=== PATIENT | male | born 1940 | race Caucasian/White ===

== ENCOUNTER 2017-02-14 17:00 | Inpatient (IN) | payer MEDICARE, OTHER ==
[~2017-02-14] VITALS: Ht 182.9 cm; Wt 108.6 kg
--- NOTE | ~2017-02-14 | OR ---
PATIENT'S NAME: ROXANN OSCAR [facility] AGE: 76 Y [address] ROOM: [id number] [place], [place] [address] LOCATION: GICU ADMIT DATE: 02/14/2017 OR/Procedure Report DISCHARGE DATE: FAMILY PHYSICIAN: PHYSICIAN, NO ATTENDING PHYSICIAN: Quinton Reis SURGEON: Emeterio Lutz MD [employer] OPERATOR: DATE OF PROCEDURE: 02/15/2017 PROCEDURES PERFORMED: 1. Left radial arterial line. 2. Right internal jugular venous catheter. 3. Transesophageal echocardiography. INDICATIONS: The patient is undergoing coronary artery bypass grafting. DESCRIPTION OF PROCEDURE: The patient was identified in perioperative holding. The left arm was extended out, cleaned with 2% chlorhexidine. The radial artery was easily palpated. After 2 sticks and ultrasound guidance, the artery was cannulated with a 20-gauge Arrow catheter using the Seldinger technique. Bright red pulsatile blood found on return, and secured into place. Blood loss, none. Complications, none. After induction of general anesthesia, the patient was lying supine on the operating table in slight Trendelenburg position. The right neck and chest were prepped with chlorhexidine 2%. Maximal sterile barriers worn at all times. The ultrasound was used to identify the right internal jugular vein and used for real-time guidance. With a single stick, dark nonpulsatile blood was found on return, and a wire was threaded easily. Ultrasound was then used to visualize the wire and internal jugular vein. Skin nicked, dilated, and a 9-Irish, 10 cm catheter was placed over the wire without complication. The catheter was sutured in place. Ports withdrew blood, flushed easily. Complications, none. Blood loss, none. Chest x-ray is ordered in the ICU. After induction of general anesthesia and placement of lines, the transesophageal echocardiogram probe was placed atraumatically. Please see saved images and SDS sheet for further details. It showed preserved ejection fraction of around 55% to 60%. There was some mild mitral regurgitation. Aortic valve was trileaflet with minimal sclerosis. Good functioning. No stenosis or regurgitation noted, and pressure gradient was around 6, and valve area was 4. There was no pericardial effusion. No atrial septal defects. There was minimal to no atheromas on the arch. After conclusion of the case, echo had been obtained and was essentially unchanged. PATIENT'S NAME: ROXANN OSCAR [facility] AGE: 76 Y [address] ROOM: [facility] [place] [place], [place] [address] LOCATION: [facility] ADMIT DATE: 02/14/2017 OR/Procedure Report DISCHARGE DATE: FAMILY PHYSICIAN: PHYSICIAN, ETELVINA ATTENDING PHYSICIAN: Quinton Reis MD CHARITY ALEXANDER/pierce /[id number] d: 02/15/17 1825 t: 03/02/17 1344, OPERATIVE SUMMARY
--- NOTE | ~2017-02-14 | HP ---
PATIENT'S NAME: ROXANN RUSSELL [facility] AGE: 76 Y [address] ROOM: [place] [address] LOCATION: GPCU ADMIT DATE: 02/14/2017 History & Physical DISCHARGE DATE: FAMILY PHYSICIAN: PHYSICIAN, UNKNOWN ATTENDING PHYSICIAN: Quinton Nails DATE OF SERVICE: CHIEF COMPLAINT: Three-vessel coronary artery disease. HISTORY OF PRESENT ILLNESS: The patient is a 76-year-old white male, who was transferred here from [place] late this afternoon. He is a very pleasant gentleman who resides in [place], [place], and has been having trouble with his blood pressure for quite some time now. He has gone through multiple medication changes with no improvement in his blood pressure. Overall, he was feeling poorly with excessive fatigue, always tired, and he could barely walk without becoming dyspneic. He denied any significant chest pain that felt bad enough that he continued to pursue getting evaluated. He was set up for a stress test which revealed an inferior wall ischemia. From there, his primary set him up to see Dr. [facility] [place] on January 30, 2017. From the findings on the stress test, it was recommended that he undergo a cardiac catheterization, which was performed in [place] this morning. Findings were for a normal EF. The LAD had a large lesion of 85%, the circumflex 80% occlusion, a very large area of occlusion to the RCA consisting of anywhere between 80% and 95%. At this point, Dr. Garcia did not feel that remediation with stent would be appropriate and transferred the patient to Dr. Nails for coronary artery bypass grafting. PAST MEDICAL HISTORY: Illnesses: Hypertension, hypothyroidism, seasonal allergies, and obesity. ALLERGIES: NO KNOWN DRUG ALLERGIES. SOCIAL HISTORY: The patient resides in [place], [place] with his . He has grown children. He is retired. No history of alcohol abuse or tobacco abuse. FAMILY HISTORY: His father at age 68 from myocardial infarction. CURRENT MEDICATIONS: 1. Bystolic 20 mg daily. PATIENT'S NAME: ROXANN OSCAR [facility] AGE: 76 Y [address] ROOM: [place] [address] LOCATION: GPCU ADMIT DATE: 02/14/2017 History & Physical DISCHARGE DATE: FAMILY PHYSICIAN: PHYSICIAN, UNKNOWN ATTENDING PHYSICIAN: Quinton Nails 2. Flonase 50 mcg two sprays each nostril once a day. 3. Norvasc 5 mg daily. 4. Aspirin 81 mg daily. 5. Plavix 75 mg daily. 6. Imdur 60 mg daily. 7. Levothyroxine 75 mcg daily. 8. Cozaar 50 mg daily. 9. Artificial Tears one drop each eye p.r.n. dry eyes. SYSTEM REVIEW: GENERAL: The patient has not really had any change in his weight or appetite. No fever, chills, or sweats. He has been excessively tired/fatigued for quite some time now. HEENT: No visual complaints. No hearing complaints. He does have seasonal allergies for which he is taking medication. No difficulty swallowing, change in voice, or hoarseness. RESPIRATORY: He has been experiencing dyspnea on exertion and cannot walk very far without becoming fairly short of breath, having to stop and rest. CARDIOVASCULAR: Some occasional chest pain, but nothing severe. No palpitations, no syncope. Denies intermittent claudication. No complaints of ongoing lower extremity edema. GI: No nausea, vomiting, constipation, or diarrhea. No complaints of persistent reflux. : No urinary complaints. MUSCULOSKELETAL: No significant arthritic aches or pains. Does not require ambulatory devices. NEUROLOGIC: No frequent or severe headaches. No history of seizures, memory loss, or syncope. PSYCHIATRIC: No psychiatric or psychiatric history. No history of diabetes. He does have a history of hypothyroidism for which he takes replacement therapy. INTEGUMENT: No known skin diseases. PHYSICAL EXAMINATION: VITAL SIGNS: Blood pressure is 184/84, pulse is 58, respirations 16, temp 97.9, O2 saturations 96% on room air. Weight is 114.4 kg, height is 182.88 cm. GENERAL: The patient is very pleasant and cooperative. He appears his appropriate age, in no acute distress. His and daughter are at the bedside. HEENT: Normocephalic with EOMIs intact. Conjunctivae clear. NECK: No palpable lymphadenopathy or thyromegaly. LUNGS: Clear to auscultation bilaterally. CARDIOVASCULAR: Regular rate and rhythm with no murmur detected. ABDOMEN: Obese, soft, nontender by 4 quadrants with positive bowel sounds PATIENT'S NAME: ROXANN OSCAR [facility] AGE: 76 Y [address] ROOM: [address] [address] [facility] ADMIT DATE: 02/14/2017 History & Physical DISCHARGE DATE: FAMILY PHYSICIAN: PHYSICIAN, UNKNOWN ATTENDING PHYSICIAN: Quinton Nails throughout. EXTREMITIES: No overt varicosities or edema. NEUROLOGIC: Alert and oriented x3. Strength is symmetrical. SKIN: No suspicious skin lesions. LABORATORY DATA: Labs from February 07, 2017, BUN 13, creatinine 1.1, GFR 65. Potassium 4.1. Hemoglobin 13.9, platelets 240. Otherwise, cardiac catheterization as per HPI. IMPRESSION: 1. Three-vessel coronary artery disease. 2. Poorly controlled hypertension. RECOMMENDATION AND PLAN: Dr. Nails spoke to the patient and his family with regard to surgical revascularization. He provided a diagram outlining the blockages. Plans would be for a four-vessel bypass. Risks and benefits of the procedure were discussed. Discussion of the risks include, but were not limited to, bleeding, requiring transfusion or return to the operative suite, myocardial infarction, cerebrovascular accident, renal and/or pulmonary failure. Also discussed for arrhythmias and infection as well as operative and postoperative mortality. The patient will be at an increased risk for bleeding as he has been on Plavix. Questions have been asked and answered by the patient and his family and questions answered to their satisfaction. We will plan for surgery first thing tomorrow morning. We will begin the preoperative evaluation at this time. We will also get him started on a nitroglycerin drip secondary to his hypertensive state and have the nitroglycerin titrated to keep systolic blood pressures greater than or equal to 150. ZAKI HASSAN APRN FOR [employer], DO MALLORY/paulettel /[id number] D: 950 T: 429 HISTORY & PHYSICAL
--- NOTE | ~2017-02-14 | PUL ---
PATIENT'S NAME: ROXANN OSCAR [facility] AGE: 76 Y [address] ROOM: [id number] [address] LOCATION: GICU ADMIT DATE: 02/14/2017 Pulmonary DISCHARGE DATE: FAMILY PHYSICIAN: PHYSICIAN, NO ATTENDING PHYSICIAN: Quinton Reis NAME OF PROCEDURE: Bedside Spirometry DATE OF PROCEDURE: February 14, 2017 TECH: Jose, TARSHA REASON FOR EXAM: Pre-surgical evaluation RESULTS: Spirometry reveals decreased FVC at 3.03 which is 65% predicted, decreased FEV1 at 2.50 which is 74% predicted, normal FEV1/FVC ratio is 82%, there is no significant bronchodilator response. PHYSICIAN INTERPRETATION: This spirometry is indicative of restrictive lung disease, full PFT is recommended for lung volume evaluation. Thank you for allowing me to participate in care of this patient. MD ROGER ROBIN/shahid /[id number] dtt: 02/27/17 1044 , Eleuterio So. dtd: 02/16/17 1155
--- NOTE | ~2017-02-14 | OR ---
PATIENT'S NAME: ROXANN OSCAR [facility] AGE: 76 Y [address] ROOM: [place] [address] LOCATION: GPCU ADMIT DATE: 02/14/2017 OR/Procedure Report DISCHARGE DATE: 02/20/2017 FAMILY PHYSICIAN: Marck Durbin ATTENDING PHYSICIAN: Quinton Reis SURGEON: Quinton Reis DO [employer]: DATE OF PROCEDURE: 02/15/2017 PREOPERATIVE DIAGNOSES: 1. Multivessel coronary artery disease. 2. Unstable angina. SECONDARY DIAGNOSES: 1. Hypertension. 2. Hypothyroidism. POSTOPERATIVE DIAGNOSES: 1. Multivessel coronary artery disease. 2. Unstable angina. PROCEDURES: Coronary artery bypass grafting x4 with left internal mammary artery bypass to the LAD, reverse saphenous vein bypass to the obtuse marginal 1, reverse saphenous vein bypass to obtuse marginal 2, reverse saphenous vein bypass to the right coronary artery. REFERRING PHYSICIAN: Dr. Garcia. BRIEF HISTORY: Mr. Oscar is a 76-year-old white male with the above-noted diagnosis. He has been brought to the operative suite today after informed consent was obtained for surgical revascularization. He was sterilely prepped and draped in usual fashion for sternotomy with lower extremity vein harvest. The sternal incision was made. The sternum was divided in midline. The marrow was made hemostatic with Hawa and electrocautery, and the internal mammary artery retractor was placed. Concurrently to this, the saphenous vein was harvested endoscopically from the lower extremity. The mammary was identified and then harvested utilizing surgical clips and electrocautery, and prior to its division, the patient was heparinized. The mammary was then divided and prepared for bypass. Mammary retractor was removed, and a sternal retractor was placed. Pericardium was opened and pericardial well was created. Cannulation sutures were placed in the ascending aorta and right atrium for bypass and cardioplegia cannulas, and the patient was cannulated and connected to the bypass pump without difficulty. The vein was then prepared for bypass. Cardiopulmonary bypass was initiated. Crossclamp was applied. Direct antegrade and retrograde cardioplegia was given along with PATIENT'S NAME: ROXANN OSCAR [facility] AGE: 76 Y [address] ROOM: [place] [address] LOCATION: GPCU ADMIT DATE: 02/14/2017 OR/Procedure Report DISCHARGE DATE: 02/20/2017 FAMILY PHYSICIAN: Marck Durbin ATTENDING PHYSICIAN: Quinton Reis topical cold saline. The heart arrested without difficulty. The right coronary artery was identified and opened. End-to-side vein graft anastomosed to this utilizing 7-0 Prolene. The graft was then sized appropriately and connected to the cardioplegia system. Another 500 mL of vein graft and retrograde cardioplegia was given, and this was done after each venous distal anastomosis. Similar venous distal anastomoses were then created to each of the obtuse marginals and then the left internal mammary artery was anastomosed to the left anterior descending artery, again in end-to-side fashion with 7-0 Prolene. With this completed, the bulldog was removed from the internal mammary artery and the cross-clamp was removed. Partial occlusion clamp was now placed and 3-proximal anastomosis was connected to the ascending aorta utilizing a 4-0 punch and 6-0 Prolene. With these completed, the partial occlusion clamp was now removed, vein grafts de-aired, bulldog was removed, and distal flow was given. Warm blood which had been going via the vein grafts and the retrograde cannula was now discontinued and retrograde cannula was removed. All distal sites were hemostatic. All proximal sites were hemostatic. Two atrial and one ventricular temporary pacemaking wires were placed. Ventilations were initiated, and we weaned from bypass without difficulty. The venous cannula was removed. Appropriate volume returned from the pump to the patient. The ascending aortic cannula was removed. Protamine was now given. Copious amounts of antibiotic-infused saline was used to irrigate the sternum and mediastinum. Four chest tubes were placed, one left pleural, one right pleural, one posterior pericardial, one anterior mediastinal, and the sternum was approximated with a ZipFix system, and the soft tissues were irrigated again and closed in layered fashion. All sponge, instrument, and needle counts correct, and the patient was transferred to the intensive care unit in stable condition. DO PAUL BENEDICT/pierce /[id number] d: 02/21/172005 t: 02/22/17 0741, OPERATIVE SUMMARY
--- NOTE | ~2017-02-14 | ENPV ---
Vascular Lower Extremity Vein Mapping Procedure Demographics Patient Name ROXANN OSCAR Date of Study 02/14/2017 Patient Number [id number] Gender Male Date of 1940 Age 76 Visit Number [id number] Height Accession Number [id number] Weight Room Number G6214 BSA BMI Referring Chato Tim DO Interpreting Lulú Liu MD Physician Physician Physician Ordering Chato Tim Direct Support Professional Caregiver Physician DO Bath Solution Maker Anu Storm RDCS, RVT Conclusions Summary No evidence of deep vein thrombosis or superficial thrombophlebitis in the lower extremities bilaterally . The bilateral great saphenous vein was mapped and diameters are as listed. Procedure Type of Study: Veins:Lower Extremity Vein Mapping, Vein Mapping. Indications for Study:Pre-op CABG. Appropriate Use Criteria:9 Patient Status:Routine. Study Location:Inpatient Portable. Technical Quality:Adequate visualization. Velocities are measured in cm/s ; Diameters are measured in cm + ++--------++--------+ !Superficial - Great Saphenous Vein !!Right !!Left ! + ++--------++--------+ !Location !!Diameter!!Diameter! + ++--------++--------+ !Sapheno Femoral Junction !!0.85 !! ! + ++--------++--------+ !GSV High Thigh !!0.56 !!0.7 ! + ++--------++--------+ !GSV Mid Thigh !!0.47 !!0.39 ! + ++--------++--------+ !GSV Low Thigh !!0.58 !!0.45 ! + ++--------++--------+ !GSV Knee !!0.53 !!0.47 ! + ++--------++--------+ !GSV High Calf !!0.44 !!0.31 ! + ++--------++--------+ !GSV Mid Calf !!0.38 !!0.3 ! + ++--------++--------+ !GSV Low Calf !!0.41 !!0.23 ! + ++--------++--------+ - Number of vein branches on the right side:1 above knee. - Number of vein branches on the left side:1 below knee. Signature dtt: Abdon Chino dtd: 02/14/172000 Physician Self Edit
--- NOTE | ~2017-02-14 | ENPV ---
Carotid Duplex Study Demographics Patient Name ROXANN OSCAR Date of Study 02/14/2017 Patient Number [id number] Gender Male Date of 1940 Age 76 Visit Number [id number] Height Accession Number [id number] Weight Room Number G6214 BSA BMI Referring Chato Tim DO Interpreting Lulú Liu MD Physician Physician Physician Ordering Chato Tim Gta Physician DO Deli Slicer Anu Storm [facility], T Conclusions Summary The right internal carotid artery has mild, 1-39%, plaque and stenosis. The right vertebral artery is present with antegrade flow. The left internal carotid artery has mild, 1-39%, plaque and stenosis. The left vertebral artery is present with antegrade flow. Procedure Type of Study: Cerebral:Carotid, Carotid Doppler Bilateral. Indications for Study:Pre-op CABG. Appropriate Use Criteria:9 Patient Status:LUI. Study Location:Inpatient Portable. Technical Quality:Adequate visualization. Velocities are measured in cm/s ; Diameters are measured in cm Carotid Right Measurements Carotid Left Measurements + +--------+--------+ + + + +--------+ --------+ + + !Location !PSV !EDV !Angle !%Stenosis ! !Location !PSV ! EDV !Angle !%Stenosis ! + +--------+--------+ + + + +--------+ --------+ + + !Prox CCA !93 !13 !60 ! ! !Prox CCA !105 ! 14 !60 ! ! + +--------+--------+ + + + +--------+ --------+ + + !Dist CCA !70 !11 !60 ! ! !Dist CCA !76 ! 11 !60 ! ! + +--------+--------+ + + + +--------+ --------+ + + !Prox ICA !59 !12 !60 ! ! !Prox ICA !69 ! 16 !60 ! ! + +--------+--------+ + + + +--------+ --------+ + + !Dist ICA !50 !16 !60 ! ! !Dist ICA !74 ! 23 !60 ! ! + +--------+--------+ + + + +--------+ --------+ + + !Prox ECA !119 !10 !60 ! ! !Dist ECA !193 ! 13 !60 ! ! + +--------+--------+ + + + +--------+ --------+ + + !Vertebral !38 !10 !60 ! ! !Vertebral !59 ! 15 !60 ! ! + +--------+--------+ + + + +--------+ --------+ + + !Subclavian !163 ! !60 ! ! !Subclavian !89 ! !60 ! ! + +--------+--------+ + + + +--------+ --------+ + + - There is antegrade vertebral flow noted on the right side. - There is antegrade verte bral flow noted on the left side. - Add'l Measurements:Subclavian PRV 163 cm/sICAPSV/CCAPSV - Add'l Measurements:Subcl zoraida PRV 89 cm/sICAPSV/CCAPSV 0.63.ICAEDV/CCAEDV 1.23. 0.7.ICAEDV/CCAEDV 1.64. Impressions Right Impression There is a mild amount of smooth heterogeneous plaque in the right internal carotid artery . Left Impression There is a mild amount of smooth heterogeneous plaque in the left internal carotid artery . Signature dtt: Abdon Chino dtd: 02/14/17 1941 Physician Self Edit
--- NOTE | ~2017-02-14 | DS ---
PATIENT'S NAME: ROXANN OSCAR [facility] AGE: 76 Y [address] ROOM: [address] [place], [place] [address] LOCATION: GPCU ADMIT DATE: 02/14/2017 Discharge Summary DISCHARGE DATE: 02/20/2017 FAMILY PHYSICIAN: Marck Durbin ATTENDING PHYSICIAN: Quinton Nails [facility] COURSE: The patient is a 76-year-old white male who resides in [facility]. He was having trouble with excessively elevated blood pressures and went in to see his steel sampler. Workup led to a cardiac catheterization which revealed a multivessel coronary artery disease. Following the catheterization, the patient was transferred to [place] by Dr. Garcia in anticipation of coronary artery bypass grafting. The patient consented to the procedure and on 02/15/2017 the patient presented to the operative suite for coronary artery bypass grafting x4 with a left internal mammary artery bypass to the LAD, reverse saphenous vein graft bypass to the obtuse marginal, reverse saphenous vein graft bypass to the obtuse marginal #2, and reverse saphenous vein bypass to the coronary artery. The patient tolerated the surgery without complication. He transferred to the ICU thereafter. The patient extubated on the same operative day without complication. On postoperative day 1, his lines and drips were discontinued. He was transferred to the Progressive Care Floor. Cardiac Rehab was consulted to work with the patient for strengthening purposes. Presser Hand was called to the room to speak with the and daughter with regards to a heart healthy cooking. The patient's chest tubes, pacemaking wires, and Moraes catheter were discontinued in the routine postoperative timeframe. The patient did have urinary retention following the removal of the urinary catheter and therefore the Moraes was reinserted. The patient was started on Flomax. After a full course of the Flomax, the Moraes catheter was discontinued at midnight and the patient had no complications with voiding thereafter. The patient did not have any runs of postoperative atrial fibrillation. He had no healing concerns while hospitalized. Care Management worked with the patient and family regarding their desires for the patient's discharge status. They did not acquire any Home Health Care or skilled needs. The patient's medications were optimized and he was found stable to discharge to home on 02/20/2017. DISCHARGE ORDERS: Include a cardiac prudent diet. Activity levels as per the open heart surgery discharge summary sheet. No dressing changes are required. The patient was scheduled in to see Dr. Nails in 2 weeks as well as Dr. Garcia in 10 days. PRINCIPAL DIAGNOSES: Include coronary artery disease, hypertension, seasonal allergies, and hypothyroidism. The patient is not to pull, push, or lift anything heavier than 10 pounds PATIENT'S NAME: ROXANN OSCAR [facility] AGE: 76 Y [address] ROOM: [address] [place], [place] [address] LOCATION: GPCU ADMIT DATE: 02/14/2017 Discharge Summary DISCHARGE DATE: 02/20/2017 FAMILY PHYSICIAN: Marck Durbin ATTENDING PHYSICIAN: Quinton Nails until March 29, 2017. He is to work with Cardiac Rehab on an outpatient basis. DISCHARGE MEDICATIONS: Include: 1. Levothyroxine 75 mcg q.h.s. 2. Aspirin 81 mg daily. 3. Bystolic 10 mg at h.s. 4. Claritin 10 mg daily. 5. Tylenol 500 mg q.4 h. p.r.n. 6. Flonase 2 sprays each naris daily p.r.n. 7. Artificial Tears 1 drop each eye p.r.n. 8. Amiodarone 200 mg twice a day. 9. Lipitor 20 mg at h.s. 10. Bumex 2 mg daily. 11. Colace 100 mg twice a day. 12. Potassium chloride 20 mEq daily. 13. Flomax 0.4 mg at h.s. 14. Albuterol 2 puffs per inhalation q.i.d. 15. Clarion 5/325 1-2 every 4-6 hours as needed. 16. Milk of mag 30 mL p.o. daily. The patient and verbalized understanding of the discharge orders. The patient is discharged to home in stable condition. ZAKI HASSAN APRN FOR [employer] DO DLQ/modl /[id number] d: 03/08/17 0558 t: 03/14/17 1000, DISCHARGE SUMMARY
[2017-02-14] MEDS ORDERED: NORVASC5 MG PO (18:00)
[2017-02-14] MEDS ORDERED: LEVOTHROID(SYN75 MCG PO (18:01)
[2017-02-14] MEDS ORDERED: IMDUR60 MG PO (18:01)
[2017-02-14] MEDS ORDERED: COZAAR50 MG PO (18:01)
[2017-02-14] MEDS ORDERED: PLAVIX75 MG PO (18:01)
[2017-02-14] MEDS ORDERED: BYSTOLIC10 MG PO (18:02)
[2017-02-14] MEDS ORDERED: TYLENOL EXTRA500 MG PO (18:02)
[2017-02-14] MEDS ORDERED: ASPIRIN LO-DOSE81 MG PO (18:02)
[2017-02-14] MEDS ORDERED: CLARITIN10 MG PO (18:02)
[2017-02-14] MEDS ORDERED: ARTIFICIAL TEAR15 ML OPHTH (18:03)
[2017-02-14] MEDS ORDERED: FLONASE 50 MCG/16 GM NOSE (18:03)
--- NOTE | 2017-02-14 19:34 | NUR ---
Patient is 76 yo male admitted from [facility] after having a heart cath there today. Plan to have CABG in am. patient has been having pain in his back and right upper shoulder for a "few" weeks he states. Pt did have a CT scan 2-3 weeks ago his says and they saw an enlarged adrenal gland but will follow up after CABG. patient is very pleasant to visit with. Patient has saline lock in both left and right antecubital spaces. no erythema or edema is noted at either site. Patient lives near [place], [place]. has hx of smoking, quit in 2000, hx of alcoholism, quit in 1085. education is given as documented. patient and deny questions. pneumatics are on bilat calves. allergy bracelet is on. call light is within reach. patient denies needs at this time. Report is given to ADELAIDA Iniguez.
[2017-02-14 19:50] LABS: HEMATOCRIT 41.2 % (37.0-53.0); HEMOGLOBIN 14.2 g/dL (11.0-16.0); MCHC 34.5 gm/dL (32.0-36.5); MPV 8.9 fl (9.4-12.4); PLATELET COUNT 215 K/uL (150-450); RBC 4.58 M/uL (3.50-5.50); RDW-CV 13.6 % (11.9-14.6); WBC 6.5 K/uL (4.0-11.0)
[2017-02-14 19:55] LABS: BICARBONATE 25.2 mmol/L (18.0-23.0); PCO2 38 mmHg (35-45); PO2 74 mmHg (80-90)
[2017-02-14 20:11] LABS: ALBUMIN 3.9 gm/dL (3.5-5.0); ALK PHOS 41 IU/L (33-138); ALT 30 IU/L (12-78); ANION GAP 10.1 (10.0-19.0); AST 14 IU/L (10-40); BLOOD UREA NITROGEN 14 mg/dL (6-24); CALCIUM 8.8 mg/dL (8.5-10.5); CHLORIDE 105 mMol/L (96-110); CO2 27 mMol/L (22-32); ESTIMATED GFR (MDRD EQUATION) > 60; POTASSIUM 4.1 mMol/L (3.7-5.1); SODIUM 138 mMol/L (135-145); TOTAL BILIRUBIN 0.8 mg/dL (0.0-1.5); TOTAL PROTEIN 7.6 g/dL (6.0-8.4)
[2017-02-14 20:45] LABS: INR - (THERAPEUTIC) 0.99 (0.92-1.07); PROTIME 10.4 SECONDS (9.8-11.4); PTT 26 SECONDS (25-32)
[2017-02-14 23:59] LABS: BILIRUBIN URINE NEGATIVE (NEGATIVE); BLOOD URINE 10 /UL (NEGATIVE); COLOR URINE YELLOW (YELLOW); GLUCOSE URINE NEGATIVE (NEGATIVE); KETONE URINE NEGATIVE (NEGATIVE); LEUKOCYTES URINE NEGATIVE /UL (NEGATIVE); NITRITE URINE NEGATIVE (NEGATIVE); PROTEIN URINE 15 mg/dL (NEGATIVE); TURBIDITY URINE CLEAR (CLEAR); UROBILINOGEN URINE NORMAL (NORMAL)
[2017-02-15 00:05] LABS: BACTERIA URINE NEGATIVE (NEGATIVE); EPITHELIAL URINE RARE #/HPF (NEGATIVE); RBC URINE 0-2 #/HPF (NEGATIVE); WBC URINE NEGATIVE #/HPF (NEGATIVE)
--- NOTE | 2017-02-15 05:14 | NUR ---
Significant Event: A/O x3. Afebrile. Anxious at times. Denies pain. Titrated nitro gtt to keep sbp <150. Nitro gtt currently at 50mcg. SBP 210s decreased to current blood pressure 134/70. No headaches. HRs 57-70s. LS clear/dim. NPO since midnight. Bicarb running. Bilat AC IVs patent. Standby assist. CABG prep completed. Follow up: CABG procedure this am. Family at bedside.
[2017-02-15 11:28] LABS: MCV 90.5 fl (83.0-98.0); MPV 8.9 fl (9.4-12.4); RDW-CV 13.2 % (11.9-14.6); WBC 10.9 K/uL (4.0-11.0)
[2017-02-15 11:29] LABS: HEMOGLOBIN 9.1 g/dL (11.0-16.0); MCH 30.7 pg (27.0-34.0); RBC 2.96 M/uL (3.50-5.50)
[2017-02-15 11:30] LABS: HEMATOCRIT 26.8 % (37.0-53.0); PLATELET COUNT 128 K/uL (150-450)
[2017-02-15 11:42] LABS: INR - (THERAPEUTIC) 1.27 (0.92-1.07); PROTIME 13.4 SECONDS (9.8-11.4); PTT 29 SECONDS (25-32)
[2017-02-15 12:05] LABS: ALPHA ANGLE 69 degrees (70-81); ALPHA ANGLE 71 degrees; CLOT FORMATION TIME 100 seconds; CLOTTING TIME 90 seconds (43-82); MAXIMUM CLOT FIRMNESS 53 mm; MAXIMUM CLOT FIRMNESS 54 mm (51-72); MAXIMUM LYSIS 0 %
[2017-02-15 12:06] LABS: CLOTTING TIME 216 seconds
[2017-02-15 12:34] LABS: BICARBONATE 24.9 mmol/L (18.0-23.0); PCO2 44 mmHg (35-45)
[2017-02-15 12:35] LABS: PO2 143 mmHg (80-90)
[2017-02-15 12:55] LABS: ANION GAP 12.8 (10.0-19.0); BLOOD UREA NITROGEN 10 mg/dL (6-24); CALCIUM 7.7 mg/dL (8.5-10.5); CHLORIDE 108 mMol/L (96-110); CO2 24 mMol/L (22-32); CREATININE 1.1 mg/dL (0.6-1.3); ESTIMATED GFR (MDRD EQUATION) > 60; SODIUM 141 mMol/L (135-145)
[2017-02-15 12:56] LABS: POTASSIUM 3.8 mMol/L (3.7-5.1)
--- NOTE | 2017-02-15 15:01 | NUR ---
CONSULT RECEIVED FOR POST CABG HEART HEALTHY DIET ED. WILL COMPLETE DIET EDUCATION PRIOR TO DISMISSAL.
[2017-02-15 15:02] LABS: BICARBONATE 26.4 mmol/L (18.0-23.0); PCO2 45 mmHg (35-45); PO2 262 mmHg (80-90)
[2017-02-15 15:03] LABS: POTASSIUM 3.9 mEq/L (3.7-5.1); SODIUM 135 mEq/L (135-145)
[2017-02-15 15:04] LABS: BICARBONATE 28.2 mmol/L (18.0-23.0); PCO2 44 mmHg (35-45); PO2 313 mmHg (80-90)
[2017-02-15 15:07] LABS: POTASSIUM 5.1 mEq/L (3.7-5.1); SODIUM 133 mEq/L (135-145)
[2017-02-15 15:56] LABS: BICARBONATE 26.4 mmol/L (18.0-23.0); PCO2 48 mmHg (35-45); PO2 220 mmHg (80-90)
[2017-02-15 15:57] LABS: POTASSIUM 5.3 mEq/L (3.7-5.1); SODIUM 135 mEq/L (135-145)
[2017-02-15 15:58] LABS: BICARBONATE 25.6 mmol/L (18.0-23.0); PCO2 44 mmHg (35-45); PO2 272 mmHg (80-90)
[2017-02-15 15:59] LABS: SODIUM 134 mEq/L (135-145)
--- NOTE | 2017-02-15 16:18 | NUR ---
Significant Event: Patient is alert/oriented x3. Back from OR at 1205. Extubated at 1238, up to chair at 1245. Patient did have some post operative pain control problems. MD notified and was given a 1 time dose of 15mg of toradol. This helped tremendously, and relieved pain. Continues on IV insulin, D5LR at 20ml/hr and has amiodarone gtt per protocol, and bicarb at 50ml/hr until completed. APaced at 80. Ventricle wires taped to chest. Afebrile. Moraes draining good UOP. Chest tube sites x4. Follow up:
[2017-02-15 17:18] LABS: MAGNESIUM 1.9 mg/dL (1.8-2.6)
[2017-02-15 17:19] LABS: POTASSIUM 5.1 mMol/L (3.7-5.1)
[2017-02-16 05:34] LABS: BICARBONATE 27.3 mmol/L (18.0-23.0); PCO2 43 mmHg (35-45)
[2017-02-16 05:37] LABS: PO2 62 mmHg (80-90)
[2017-02-16 05:48] LABS: ANION GAP 13.4 (10.0-19.0); BLOOD UREA NITROGEN 14 mg/dL (6-24); CALCIUM 8.2 mg/dL (8.5-10.5); CHLORIDE 105 mMol/L (96-110); CO2 25 mMol/L (22-32); CREATININE 1.1 mg/dL (0.6-1.3); ESTIMATED GFR (MDRD EQUATION) > 60; POTASSIUM 4.4 mMol/L (3.7-5.1); SODIUM 139 mMol/L (135-145)
[2017-02-16 05:58] LABS: HEMOGLOBIN 11.3 g/dL (11.0-16.0); MCH 30.8 pg (27.0-34.0); MPV 9.6 fl (9.4-12.4); RBC 3.67 M/uL (3.50-5.50); RDW-CV 13.5 % (11.9-14.6)
[2017-02-16 06:01] LABS: HEMATOCRIT 33.4 % (37.0-53.0); MCHC 33.8 gm/dL (32.0-36.5)
--- NOTE | 2017-02-16 06:42 | NUR ---
Significant Event: A/O. A. PACED AT 80. NO ECTOPY NOTED. NITRO STARTED FOR HTN AT 1999. NITRO OFF AT 0545. CI 2.6-3.3. AFEBRILE. 2L O2. LUNG SOUNDS CLEAR, RUB NOTED TO L) LUNG. CHEST TUBES X4 TO SUCTION. MEDIASTINAL HAD 170ML OUT, PLEURAL HAD 260ML OUT. POOR PO INTAKE. HYPOACTIVE BOWEL SOUNDS. LOW UOP. NOTIFIED DR. NAILS. GAVE 40MG IVP LASIX X1. HAD 995ML UOP. GAVE NORCO 2 TABS X3, MORPHINE 2MG X3. STOOD WITH 2-3 ASSIST, TOLERATED WELL. Follow up: CONTINUE TO MONITOR.
--- NOTE | 2017-02-16 13:00 | NUR ---
Introduced self and role of care management to patient. He lives in [place], [place] with his . He thinks it is to soon to talk about discharge plans. He says his will proabably be here tomorrow or I can call her. Will follow.
--- NOTE | 2017-02-16 16:01 | NUR ---
Significant Event: Patient alert/oriented x3. Up ambulating in hallway x2 this shift. Up to chair/bed throughout the day. Afebrile. Paced rhythm at 70bpm. [place]'s last given at 1430 along with 2mg of Morphine. Chest tube sites x4. SS drainage. No crepitis obsered, remains to suction. No BM this shift, and not wanting to eat at all. Ensure pushed several times, he drank x2. Follow up:
--- NOTE | 2017-02-16 17:00 | NUR ---
Significant Event: Patient transferred to PCU by recliner. Report to Crescencio Chavez RN. Follow up:
--- NOTE | 2017-02-16 19:22 | NUR ---
Significant Event: Pt arrived from icu this afternoon. Moraes intact. CT 2mediastinal and 2 pleural. 02 1liter. Pacer atrial wires intact set rate 70. Norcos at 1835. Insulin drip 2units/hr, hourly checks. Pt family here. Pt alert/oriented and pleasant. Follow up:
--- NOTE | 2017-02-17 05:27 | NUR ---
Significant Event: NORCO 2 TABS GIVEN X2 FOR CONTINUED PAIN. CT #1 HAD 100ML OUT AND CT#2 HAD 90ML OUT. INSULIN GTT AT 2 UNITS ALL NIGHT. ACCUCHECKS DONE Q2H. GARNER PATENT WITH KATHLEEN URINE WITH 425ML OUT. INCREASED O2 TO 3L. WEAK COUGH. SLEPT IN BED ALL NIGHT. TEMPORARY PACER CONTINUES TO PACE. ONLY OCCASIONAL PACING NOTED PER MONITOR. HR REMAINS IN THE 70s. Follow up:
[2017-02-17 06:54] LABS: HEMATOCRIT 33.7 % (37.0-53.0); HEMOGLOBIN 11.2 g/dL (11.0-16.0); MCH 30.7 pg (27.0-34.0); MCHC 33.2 gm/dL (32.0-36.5); MCV 92.3 fl (83.0-98.0); MPV 9.5 fl (9.4-12.4); RBC 3.65 M/uL (3.50-5.50); RDW-CV 13.8 % (11.9-14.6); WBC 12.2 K/uL (4.0-11.0)
[2017-02-17 07:08] LABS: ANION GAP 10.5 (10.0-19.0); CALCIUM 8.4 mg/dL (8.5-10.5); CREATININE 1.3 mg/dL (0.6-1.3); POTASSIUM 4.5 mMol/L (3.7-5.1)
--- NOTE | 2017-02-17 16:00 | NUR ---
PATIENT UNABLE TO VOID AFTER GARNER BEING DC'D THIS AM. PATIENT STATES HE IS A LOT OF DISCOMFORT. PATIENT WAS STRAIGHT CATHED FOR 600 ML. PATIENT STATES THAT WAS A GREAT RELIEF.
--- NOTE | 2017-02-17 19:58 | NUR ---
2 CHEST TUBES WERE REMOVED TODAY, WELL PACER WIRES AND GARNER, DRESSING WAS REMOVED. PATIENT HAS BEE UP IN THE [facility] TODAY X1, CARDIAC REHAB WAS NOT ON FLOOR TODAY. PATIENT WAS UNABLE TO VOID AFTER REMOVAL OF GARNER AND WAS STRAIGHT CATHED X1 TODAY WITH 600ML RESULT. PATIENT IS A 1 ASSIST AND DOES WELL.
[2017-02-18 03:45] LABS: ALBUMIN 3.1 gm/dL (3.5-5.0); ANION GAP 12.4 (10.0-19.0); CALCIUM 8.7 mg/dL (8.5-10.5); CREATININE 1.4 mg/dL (0.6-1.3); PHOSPHORUS 3.3 mg/dL (2.5-4.9); POTASSIUM 4.4 mMol/L (3.7-5.1)
--- NOTE | 2017-02-18 05:20 | NUR ---
Significant Event: A/0X3. TURNED Q 2HRS SIDE TO SIDE. 1 ASSIST AND GB TO BR. HEART HUGGER ON. JUST NEEDS SMALL REMINDERS TO NOT PUSH UP OFF BED. AFEBRILE. VSS ON 2L. NORCO GIVEN X2 AND MORPHINE X1. PATIENT WAS ABLE TO FIND RELIEF AND REST COMFORTABLY THROUGHTOUT THE NIGHT. IV TO R) AC SL. PATIENT WAS HAVING TROUBLE URINATING WITH BLADDER SPASMS AND PAIN. STRAIGHT CATH X1 GOT 500 MLS OUT. A FEW HOURS LATER PATIENT STILL HAVING THE URGE TO VOID AND PAIN. BLADDER SCANNED PATIENT AND HE HAD > 420 IN BLADDER REINSERTED GARNER. PATIENT HAD A TOTAL OF 1350 OUT. STARTED FLOMAX PO BID. HYPOACTIVE BOWEL SOUNDS. NO BM THIS SHIFT. GILL DRAINS X2 1 HAD 30 MLS OUT. 2 HAD 50 MLS OUT. STERNUM OPEN TO AIR. EDGES APPROXIMATED AND CLOSED. DRESSING TO ABD C/D/I. HARVEST SITES TO L) LEG SUTURES INTACT AND OPEN TO AIR. Follow up: CONTINUE WITH PLAN OF CARE. CHEST XRAY THIS AM
--- NOTE | 2017-02-18 13:31 | NUR ---
A-SCREENED D/T LOS S/P CABG. NO BM SINCE ADMIT; RECEIVING BOWEL MEDS HT: 72 IN. CBW (STANDING SCALE): 111 KG. ADMIT WT (BED SCALE): 114.0 KG BMI: 33.3. RECEIVING BUMEX LABS: NA 136, K+ 4.4, GLU 119, BUN 29, HOOP EXPANDER 1.4, ALB 3.1, PREALB (PRE-OP): 35.0 MEDS: BUMEX, NOVOLOG (MOD SS), COALCE, PEPCID, NORCO, MORPHINE DIET RX: CONSISTENT CARB/2000 ML FLUID RESTRICTION. PT HAS BEEN GIVEN ENSURE ENLIVE AND ENSURE CLEAR TO TRY. HE DOES NOT LIKE THE ENSURE ENLIVE, BUT DOES LIKE THE ENSURE CLEAR WILDBERRY; HE WOULD LIKE TO RECEIVE THAT. PO INTAKE SIPS/BITE-100% SINCE ADMIT. PO INTAKE HAS IMPROVED TO 100% SINCE YESTERDAY. PT REPORTS THAT HIS APPETITE IS MUCH BETTER. EST NUTR NEEDS: [id number] KCALS (15-20 KCALS/KG) 122-162 GM PROTEIN (1.5-2.0 GM/KG IBW) FLUID PER D-AT NUTRITION RISK W/INCREASED NUTRIENT NEEDS R/T HEALING AEB STERNAL INCISION. I-1)ENSURE CLEAR BID AT [employer] AND DINNER, PER PT REQUEST 2)CARDIAC DIET POST CABG DIET ED COMPLETED WITH PT. WRITTEN INFORMATION, ALONG WITH RD CONTACT INFO LEFT WITH PT. ENCOURAGED TO CALL WITH ANY QUESTIONS. M/E-GOAL: PO INTAKE >/=75% FOR DURATION OF ADMIT 1)F/U PO INTAKE, SUPPLEMENT, AND POC IN 3-5 DAYS 2)ASSIST NEEDED
--- NOTE | 2017-02-18 15:39 | NUR ---
Significant Event: A/O. VSS weaned to 1L/NC from 3L. Ambulated in halls x2 this shift, does have some SOB but otherwise tolerates well. Pain controlled well at a 2/10. Milk of mag given with no results, states hes passing flatus and has active bowel sounds. Baca to DD and states that he feels much better having the baca in place. Dick drains DC'd today by Dr Reis. Follow up: possible dismissal Monday.
--- NOTE | 2017-02-19 05:40 | NUR ---
Significant Event: A/0X3. UP IN CHAIR THE MAJORITY OF THE NIGHT PER PATIENT REQUEST THEN GOT INTO BED. TURNED Q 2 HRS SIDE TO SIDE. HEART HUGGER ON. FOLLOWS STERNAL PRECAUTIONS. AFEBRILE. VSS ON 2L. TRIED TO WEAN PATIENT DOWN TO 1L. 87-89% ON 1L. WALKED HALLS X1. SOB WITH ACTIVITY. IV TO L) HAND SL. GARNER PATENT WITH 1100 MLS OUT. NORCO GIVEN X2. PATIENT WAS ABLE TO FIND RELEIF AND REST COMFORTABLY. ABD ROUND AND SLIGHTLY DISTENDED. PASSING GAS. STILL NO BM. Follow up:CONTINUE WITH PLAN OF CARE.
--- NOTE | 2017-02-19 15:34 | NUR ---
Significant Event: A/O. VSS weaned to RA. Pain controlled with norco. Ambulated in halls x2 so far today, tolerating well. SSI and accuchecks dc'd. Order to DC keven at midnight tonight. MOM given with no results, passing flatus. Follow up: possibly dismissing tomorrow.
[2017-02-20 03:35] LABS: HEMATOCRIT 30.2 % (37.0-53.0); MCH 30.5 pg (27.0-34.0); MCHC 33.1 gm/dL (32.0-36.5); MCV 92.1 fl (83.0-98.0); MPV 9.4 fl (9.4-12.4); RBC 3.28 M/uL (3.50-5.50); RDW-CV 13.5 % (11.9-14.6); WBC 7.1 K/uL (4.0-11.0)
[2017-02-20 03:54] LABS: ANION GAP 12.1 (10.0-19.0); CALCIUM 8.4 mg/dL (8.5-10.5); CREATININE 1.6 mg/dL (0.6-1.3); PHOSPHORUS 3.8 mg/dL (2.5-4.9); POTASSIUM 4.1 mMol/L (3.7-5.1)
--- NOTE | 2017-02-20 05:43 | NUR ---
Significant Event: A/0X3. SBA UP TO BR. HEART HUGGER ON. FOLLOWS STERNAL PRECAUTIONS WELL. AFEBRILE. VSS ON RA. LOW 90S ON RA. ENCOURAGED IS AND FV THIS SHIFT. PATIENT IS A VERY SHALLOW BREATHER. NORCO GIVEN X1 FOR PAIN. PATIENT WAS ABLE TO FIND RELIEF AND NO C/O OF PAIN THE REST OF THE SHIFT. PATIENT WAS ABLE TO REST COMFORTABLY. IV TO L) HAND SL. GARNER WAS D/C AT 2322. PATIENT WAS ABLE TO VD X1 SINCE THEN. NO C/O OF PAIN. PATIENT HAD A LARGE BM. PATIENT REFUSED SUPPER THIS EVENING BECASUE HIS STOMACH WAS UNSEATTLE. ZOFRAN WAS GIVEN X1 WITH RELIEF. D/C MEDS PRINTED AND ON CHART. Follow up: CONTINUE WITH PLAN OF CARE.
[2017-02-20] MEDS ORDERED: CORDARONE,PACE200 MG PO (09:38)
[2017-02-20] MEDS ORDERED: BUMEX1 MG PO (09:42)
[2017-02-20] MEDS ORDERED: LIPITOR20 M1 PO (09:42)
[2017-02-20] MEDS ORDERED: COLACE100 MG PO (09:43)
[2017-02-20] MEDS ORDERED: K-TAB ER20 MEQ PO (09:46)
[2017-02-20] MEDS ORDERED: FLOMAX0.4 MG PO (09:55)
[2017-02-20] MEDS ORDERED: ALBUTEROL2.5 MG/31 INH (09:57)
[2017-02-20] MEDS ORDERED: NORCO 5-325 TA1 EACH PO (09:58)
[2017-02-20] MEDS ORDERED: MILK OF MA400 MG/5 M PO (09:58)
--- NOTE | 2017-02-20 10:36 | NUR ---
CONSULT FOR CARDIAC DIET EDUCATION FOR PT'S FAMILY. RD COMPLETE DIET EDUCATION WITH PATIENT ON 02/18. VISITED PT'S AND DAUGHTER THIS AM FOR DIET ED. PT WAS TAKING SHOWER, TO BE DISCHARGED TODAY. REVIEWED CARDIAC DIET EDUCATION MATERIAL WITH AND DAUGHTER. DENIED FURTHER QUESTIONS. PT HAS A COPY OF DIET EDUCATION MATERIAL AND CONTACT INFORMATION.
--- NOTE | 2017-02-20 13:10 | NUR ---
PATIENT DISMISSED HOME WITH AND FAMILY PER PRIVATE AUTO. PATIENT TRANSFERED TO CAR PER W/C BY TRANSPORT STAFF. REVIEWED DIMSISSAL INSTRUCTIONS WITH PATIENT AND FAMILY INCLUDING STERNAL PRECAUTIONS AND POST-CABG CARE INSTRUCTIONS. PATIENT VERBALIZED UNDERSTANDING. GAVE PATIENT INFORMATION SHEETS ON NEW MEDICATIONS AND POST-CABG CARE DISMISSAL INSTRUCTIONS.
== END 2017-02-20 11:00 | disposition disaster alternative care site (69) | DRG 236 ==
LOC: GPCU 17:26 → GICU 17:26 → GPCU 02-16 16:51
PROVIDERS: ADMIT Thoracic Surgery (Cardiothoracic Vascular Surgery)
PROC: B245ZZ4 Ultrasonography of Left Heart, Transesophageal (ICD-10-PCS; principal; 2017-02-15)
PROC: 02100Z9 Bypass Coronary Artery, One Artery from Left Internal Mammary, Open Approach (ICD-10-PCS; principal; 2017-02-15)
PROC: 03HC33Z Insertion of Infusion Device into Left Radial Artery, Percutaneous Approach (ICD-10-PCS; principal; 2017-02-15)
PROC: 05HM33Z Insertion of Infusion Device into Right Internal Jugular Vein, Percutaneous Approach (ICD-10-PCS; principal; 2017-02-15)
PROC: 021 Heart and Great Vessels, Bypass (ICD-10-PCS; principal; 2017-02-15)
PROC: 5A1221Z Performance of Cardiac Output, Continuous (ICD-10-PCS; principal; 2017-02-15)
DX: I25.110 Atherosclerotic heart disease of native coronary artery with unstable angina pectoris (principal); I10 Essential (primary) hypertension; E03.9 Hypothyroidism, unspecified; E66.9 Obesity, unspecified
CPT/HCPCS: C1769; J0282; J0690; J1644; J1650; J1885; J1940; J2150; J2250; J2270; J2405; J2440; J2720; J3475; J3480; J3490; J7040; J7060; J7121; P9045; P9047

== ENCOUNTER → 2017-03-06 | Outpatient (CLI) | payer MEDICARE, OTHER ==
[~2017-03-06] MED LIST: ALBUTEROL2.5 MG/31 INH; ARTIFICIAL TEAR15 ML OPHTH; ASPIRIN LO-DOSE81 MG PO; BUMEX1 MG PO; BYSTOLIC10 MG PO; CLARITIN10 MG PO; COLACE100 MG PO; CORDARONE,PACE200 MG PO; COZAAR50 MG PO; FLOMAX0.4 MG PO; FLONASE 50 MCG/16 GM NOSE; IMDUR60 MG PO; K-TAB ER20 MEQ PO; LEVOTHROID(SYN75 MCG PO; LIPITOR20 M1 PO; MILK OF MA400 MG/5 M PO; NORCO 5-325 TA1 EACH PO; NORVASC5 MG PO; PLAVIX75 MG PO; TYLENOL EXTRA500 MG PO
[2017-03-06 14:29] LABS: BASOPHIL # 0.1 K/uL (0.0-0.2); BASOPHIL % 0.7 %; EOSINOPHIL # 0.2 K/uL (0.0-0.5); EOSINOPHIL % 2.8 %; HEMATOCRIT 33.3 % (37.0-53.0); HEMOGLOBIN 10.8 g/dL (11.0-16.0); IMMATURE GRANULOCYTE % 0.6 %; LYMPHOCYTE # 1.2 K/uL (0.8-4.0); LYMPHOCYTE % 17.3 %; MCH 29.4 pg (27.0-34.0); MCHC 32.4 gm/dL (32.0-36.5); MCV 90.7 fl (83.0-98.0); MONOCYTE # 0.6 K/uL (0.0-1.0); MONOCYTE % 8.7 %; MPV 8.8 fl (9.4-12.4); NEUTROPHIL # (ANC) 4.7 K/uL (1.4-9.0); NEUTROPHIL % 69.9 %; NRBC % 0 /100WBC (0-0.00); RBC 3.67 M/uL (3.50-5.50); RDW-CV 13.2 % (11.9-14.6); WBC 6.8 K/uL (4.0-11.0)
[2017-03-06 14:31] LABS: PLATELET COUNT 385 K/uL (150-450)
[2017-03-06 14:48] LABS: ALBUMIN 3.4 gm/dL (3.5-5.0); CREATININE 1.8 mg/dL (0.6-1.3); TOTAL BILIRUBIN 0.8 mg/dL (0.0-1.5); TOTAL PROTEIN 7.3 g/dL (6.0-8.4)
== END | disposition disaster alternative care site (69) ==
LOC: LNHI 14:21
PROVIDERS: Nurse Practitioner Women's Health
DX: I25.10 Atherosclerotic heart disease of native coronary artery without angina pectoris (principal); I10 Essential (primary) hypertension; R53.83 Other fatigue